=== PATIENT | male | born 1960 | race Caucasian/White ===

== ENCOUNTER → 2024-11-10 | Outpatient (CLI) | payer MEDICARE, MEDICAID, SELFPAY ==
--- NOTE | 2024-11-10 | XR_ITS ---
Examination: CT abdomen, without intravenous contrast. CT pelvis, without intravenous contrast. CT abdomen, with intravenous contrast. CT pelvis, with intravenous contrast. 2-D sagittal coronal reconstructions. Date and time of exam:November 10, 2024 1120 hours Comparison October 01, 2020 INDICATIONS: 30 pound weight loss over the last month CTDI: vol (mGy) 23.5 DLP: (mGycm) 1023 Technique: Multiple 3.0 axial images of the abdomen and pelvis without intravenous contrast, 3.0 mm slice thickness. Multiple 3.0 postcontrast images abdomen and pelvis also obtained, post intravenous injection 60 cc [id number] 2-D sagittal and coronal reconstructions. Low dose protocols were performed. One or more of the following dose reduction techniques were used; automated exposure control, adjustment of the mA and/or KV according to patient size, use of iterative reconstruction technique. Findings: No focal liver or splenic lesions No gallstones No pancreatic or adrenal mass Minimal perinephric stranding Abdominal aortic calcification no aneurysmal dilatation Normal appendix No bowel obstruction No diverticulitis, there is diverticulosis especially involving the sigmoid colon No significant prostatomegaly No bladder mass Tiny fat-containing right inguinal hernia Prominent osteopenia, advanced disc narrowing posteriorly L5-S1 IMPRESSION: Minimal perinephric stranding Normal appendix No bowel obstruction Colonic diverticulosis, no diverticulitis
== END | disposition home or self-care (01) ==
PROVIDERS: Referring Provider Physician Assistant; Visit Provider Physician Assistant
DX: K57.30 Diverticulosis of large intestine without perforation or abscess without bleeding (principal)
CPT/HCPCS: 74178; A4649; Q9967